=== PATIENT | female | born 1945 | race Two or more races ===

== ENCOUNTER 2019-06-09 10:00 | Outpatient (AMBR) | payer OTHER, MEDICAID, SELFPAY ==
--- NOTE | 2019-05-27 09:29 | PTNOTE_ITS ---
PT OP Initial Eval Patient Information Visit Reasons: hip post op Medical Diagnosis: Z47.1 Z96.64 Treatment Dx #1: post op R ABIGAIL Start of Care: 05/27/19 Date of Onset: 04/28/19 Initial Assessment Subjective Pt is 74 yr old female s/p R ABIGAIL about 4 weeks ago. She presents in a W/C and states she uses it for community mobility but at home she only uses the FWW to ambulate about 100'. She denies pain today in the R hip after taking a pain pill but usually the pain is about 3-4/10. My balance is pretty good. PMH: spinal sx 2018 with R drop foot, L ABIGAIL 01/21/20, R ABIGAIL 04/28/19 Imaging: in EMR Pt goal: I want to walk without a walker and use a cane Objective R hip AROM: Strength: Flexion: 80 deg 4-/5 Abduction: 30 deg 3+/5 SLR: 30 deg Gait: step to with FWW and step through with parallel bars Assessment Pt presentation consistent with referring Dx with decreased ROM, strength and function with gait. Pt requires skilled therapy to improve hip ROM, strength and function with gait. She has good rehab potential. Pt will be progressed from FWW to SPC as tolerated. Pt is aware of hip precautions. Eval followed by HEP with materials. Short Term and Penitentiary Goals 1. Ind with HEp 2. Improved flexion ROM to 90 deg and SLR to 45 deg 3. Improved hip strength to at least 4/5 flexion, abduction 4. Ambulate community distances with symmetrical gait pattern Treatment Plan 1. Manual therapy 2. Therex 3. Modalities as indicated, moist heat, ice, TENS Frequency and Duration 2x a week for 6 weeks Certification Dates: 05/27/19 to 08/26/19 Office Procedures PT Procedures PT Date of Service: 05/27/19 OP PT Eval Mod Complex 30 minutes: Yes
--- NOTE | 2019-05-29 11:56 | PT.ODAYNRPT ---
PT Outpatient Daily Note Date of Service: May 29, 2019 OP Daily Note Visit Reasons: hip post op Outpatient Physical Therapy Treatment Date: 05/29/19 Subjective: Same as time of eval Objective: See F/S for therex Assessment: Moderate tissue irritability and fatigue with therex today in supine and standing. She is globally deconditioned and uses W/C for community mobility. Should transition to FWW soon as she can ambulate with FWW. Plan: Continue per POC Length of Time (minutes) of Treatment: 30 Minutes Office Procedures PT Procedures PT Date of Service: 05/27/19 OP PT Eval Mod Complex 30 minutes: Yes PT Procedures PT Date of Service: 05/29/19 Therapeutic Exercise 30 minutes: Yes
--- NOTE | 2019-06-04 14:55 | PT.ODAYNRPT ---
PT Outpatient Daily Note Date of Service: June 04, 2019 OP Daily Note Visit Reasons: hip post op Outpatient Physical Therapy Treatment Date: 06/04/19 Subjective: Not too sore after last visit but feeling more tired today. Objective: See F/S for therex Assessment: Pt can weight shift onto the R LE but has poor standing balance and requires hand support to avoid LOB to the L. She hops off the R LE to avoid stance time, not due to pain but to balance. Moderate tissue irritability and fatigue with therex today in supine and standing. She is globally deconditioned and uses W/C for community mobility. Plan: Continue per POC Length of Time (minutes) of Treatment: 30 Minutes Office Procedures PT Procedures PT Date of Service: 05/27/19 OP PT Eval Mod Complex 30 minutes: Yes PT Procedures PT Date of Service: 05/29/19 Therapeutic Exercise 30 minutes: Yes PT Procedures PT Date of Service: 06/04/19 Therapeutic Exercise 30 minutes: Yes
--- NOTE | 2019-06-09 19:17 | PT.ODAYNRPT ---
PT Outpatient Daily Note Date of Service: June 09, 2019 OP Daily Note Visit Reasons: hip post op Outpatient Physical Therapy Treatment Date: 06/09/19 Subjective: Pt says she is walking more lately with FWW and her reminds her to. Objective: See F/S for therex Assessment: Pt can weight shift onto the R LE but has poor standing balance and requires hand support to avoid LOB to the L. She hops off the R LE to avoid stance time, not due to pain but to balance. Moderate tissue irritability and fatigue with therex today in supine and standing. She is globally deconditioned and uses W/C for community mobility. Plan: Continue per POC Length of Time (minutes) of Treatment: 30 Minutes Office Procedures PT Procedures PT Date of Service: 05/27/19 OP PT Eval Mod Complex 30 minutes: Yes PT Procedures PT Date of Service: 05/29/19 Therapeutic Exercise 30 minutes: Yes PT Procedures PT Date of Service: 06/04/19 Therapeutic Exercise 30 minutes: Yes PT Procedures PT Date of Service: 06/09/19 Therapeutic Exercise 30 minutes: Yes
== END 2019-06-12 23:59 | disposition home or self-care (01) ==
PROVIDERS: PCP Nurse Practitioner Family; Referring Provider Nurse Practitioner Family; Visit Provider Orthopaedic Surgery
DX: Z47.1 Aftercare following joint replacement surgery (principal); Z96.641 Presence of right artificial hip joint
CPT/HCPCS: 97110; 97162

== ENCOUNTER 2019-06-16 09:52 | Outpatient (AMBR) | payer OTHER, MEDICAID, SELFPAY ==
--- NOTE | 2019-06-16 20:07 | PT.ODAYNRPT ---
PT Outpatient Daily Note Date of Service: June 16, 2019 OP Daily Note Visit Reasons: R hip post op Outpatient Physical Therapy Treatment Date: 06/16/19 Subjective: Doing well, no complaints Objective: See F/S for therex Assessment: Pt challenged by bridging but was able to do about 20 fair quality about half height. Plan: Continue per POC Length of Time (minutes) of Treatment: 30 Minutes Office Procedures PT Procedures PT Date of Service: 06/16/19 Therapeutic Exercise 30 minutes: Yes
--- NOTE | 2019-06-24 13:44 | PT.ODAYNRPT ---
PT Outpatient Daily Note Date of Service: 06/24/19 OP Daily Note Visit Reasons: R hip post op Outpatient Physical Therapy Treatment Date: 06/24/19 Subjective: Pt presents in W/C today but says she is ambulating with FWW at home and she will come to therapy with it next time. Objective: See F/S for therex Assessment: Pt is deconditioned and fatigues easily with most therex. She was able to do partial body weight therex today and step ups on 4 step with fatigue but no hip pain. Plan: Continue per POC Length of Time (minutes) of Treatment: 30 Minutes Office Procedures PT Procedures PT Date of Service: 06/16/19 Therapeutic Exercise 30 minutes: Yes PT Procedures PT Date of Service: 06/24/19 Therapeutic Exercise 30 minutes: Yes
--- NOTE | 2019-06-30 10:31 | PT.ODAYNRPT ---
PT Outpatient Daily Note Date of Service: 06/30/19 OP Daily Note Visit Reasons: R hip post op Outpatient Physical Therapy Treatment Date: 06/30/19 Subjective: Pt presents to therapy ambulating with FWW Objective: See F/S for therex Assessment: Pt is deconditioned and fatigues easily with most therex. She is unable to SLR due to weakness/palsy of R hip flexors. Pt is unable to hold foot vertical in supine. Pt may benefit from nerve conduction study of R hip. Plan: Continue per POC Length of Time (minutes) of Treatment: 30 Minutes Office Procedures PT Procedures PT Date of Service: 06/16/19 Therapeutic Exercise 30 minutes: Yes PT Procedures PT Date of Service: 06/24/19 Therapeutic Exercise 30 minutes: Yes PT Procedures PT Date of Service: 06/30/19 Therapeutic Exercise 30 minutes: Yes
--- NOTE | 2019-07-03 13:26 | PT.ODAYNRPT ---
PT Outpatient Daily Note Date of Service: 07/03/19 OP Daily Note Visit Reasons: R hip post op Outpatient Physical Therapy Treatment Date: 07/03/19 Subjective: Pt presents to therapy ambulating with FWW with continued difficulty with hip flexion. Objective: See F/S for therex Assessment: Pt is deconditioned and fatigues easily with most therex. She is unable to SLR due to weakness/palsy of R hip flexors. Pt is unable to hold foot vertical in supine. Pt may benefit from nerve conduction study of R hip. Plan: Continue per POC Length of Time (minutes) of Treatment: 30 Minutes Office Procedures PT Procedures PT Date of Service: 06/16/19 Therapeutic Exercise 30 minutes: Yes PT Procedures PT Date of Service: 07/03/19 Therapeutic Exercise 30 minutes: Yes PT Procedures PT Date of Service: 06/24/19 Therapeutic Exercise 30 minutes: Yes PT Procedures PT Date of Service: 06/30/19 Therapeutic Exercise 30 minutes: Yes
--- NOTE | 2019-07-09 10:50 | PT.ODAYNRPT ---
PT Outpatient Daily Note Date of Service: 07/09/19 OP Daily Note Visit Reasons: R hip post op Outpatient Physical Therapy Treatment Date: 07/09/19 Office Procedures PT Procedures PT Date of Service: 06/16/19 Therapeutic Exercise 30 minutes: Yes PT Procedures PT Date of Service: 07/03/19 Therapeutic Exercise 30 minutes: Yes PT Procedures PT Date of Service: 06/24/19 Therapeutic Exercise 30 minutes: Yes PT Procedures PT Date of Service: 06/30/19 Therapeutic Exercise 30 minutes: Yes
--- NOTE | 2019-07-09 11:02 | PT.ODS1RPT ---
PT OP Progress/Discharge Note Date of Service: 07/09/19 Progress Note/DC Note Progress Note/Discharge Note: Progress Note Patient Information Visit Reasons: R hip post op Medical Diagnosis: Right total hip arthroplasty Service Continue Service or Discharge: Continue Service Status Subjective: Pt presents to therapy ambulating with FWW with continued difficulty with hip flexion. Objective: R hip AROM: Strength Flexion: 85 deg 3-/5 Abduction: 35 deg 3/5 SLR: 25 deg gait step to with FWW Assessment: Pt has attended 09/19 Rx visits and made slow progress with therapy goals due to possible hip flexor palsy. She is unable to SLR due to weakness/palsy of R hip flexors. Pt is unable to hold foot vertical in supine and it falls into hip retroversion. Pt may benefit from nerve conduction study of R hip and continued physical therapy to strengthen. Plan: Request additional visits to continue to strengthen hip x8 Office Procedures PT Procedures PT Date of Service: 06/16/19 Therapeutic Exercise 30 minutes: Yes PT Procedures PT Date of Service: 07/03/19 Therapeutic Exercise 30 minutes: Yes PT Procedures PT Date of Service: 06/24/19 Therapeutic Exercise 30 minutes: Yes PT Procedures PT Date of Service: 06/30/19 Therapeutic Exercise 30 minutes: Yes PT Procedures PT Date of Service: 07/09/19 Therapeutic Exercise 30 minutes: Yes
== END 2019-07-13 23:59 | disposition home or self-care (01) ==
PROVIDERS: PCP Nurse Practitioner Family; Referring Provider Nurse Practitioner Family; Visit Provider Orthopaedic Surgery
DX: Z47.1 Aftercare following joint replacement surgery (principal); Z96.641 Presence of right artificial hip joint
CPT/HCPCS: 97110

== ENCOUNTER 2019-07-18 11:20 | Outpatient (AMBR) | payer OTHER, MEDICAID, SELFPAY ==
--- NOTE | 2019-07-18 11:03 | PT.ODAYNRPT ---
PT Outpatient Daily Note Date of Service: 07/18/2019 OP Daily Note Visit Reasons: hip post op Outpatient Physical Therapy Treatment Date: 07/18/19 Subjective: pt states she uses FWW due to her foot drop on the RLE. Objective: see flow sheet. Assessment: pt was able to tolerate increase in time on the scifit. she was fatigued but after a few mins of rest she continued with ther ex. added monster walks inside the PB in which she did fine. she does sit and rest in between ther ex due to SOB. pt tends to hold her breath in during ther ex which then causes more fatigue. she is not able to flex her knee straight so she compensate into hip ER, abd and flexion. Plan: continue POC per PT. Length of Time (minutes) of Treatment: 30 Minutes
--- NOTE | 2019-07-22 13:45 | PT.ODAYNRPT ---
PT Outpatient Daily Note Date of Service: 07/22/19 OP Daily Note Visit Reasons: hip post op Outpatient Physical Therapy Treatment Date: 07/22/19 Subjective: She is walking with FWW and is wondering if she should switch to 4WW and doesn't feel safe to do so yet. She is wearing R AFO. Objective: See F/S for therex Assessment: Pt fatigues easily with therex without resistance and has continued difficulty with R SLR/hip flexion. Plan: Continue per POC Length of Time (minutes) of Treatment: 30 Minutes
--- NOTE | 2019-07-25 14:05 | PT.ODAYNRPT ---
PT Outpatient Daily Note Date of Service: 07/25/2019 OP Daily Note Visit Reasons: hip post op Outpatient Physical Therapy Treatment Date: 07/25/19 Subjective: pt states she feels pain in her R groin area. she will have exams to determine the reason of the pain per . Objective: see flow sheet. Assessment: pt added new exercises in which she did well but fatigues. pt gets SOB quickly and needs breaks in between exercises. she was wearing her AFO on the RLE. although she was wearing her AFO she was still ambulating with antalgic gait pattern due to the hip. she is able to flex the hips during her walking marches but not too much just high enough to lift the feet off the floor. Plan: continue POC per PT. Length of Time (minutes) of Treatment: 30 Minutes Office Procedures PT Procedures PT Date of Service: 07/22/19 Therapeutic Exercise 30 minutes: Yes PT Procedures PT Date of Service: 07/25/19 Therapeutic Exercise 30 minutes: Yes
--- NOTE | 2019-07-28 19:25 | PT.ODAYNRPT ---
PT Outpatient Daily Note Date of Service: 07/28/19 OP Daily Note Visit Reasons: hip post op Outpatient Physical Therapy Treatment Date: 07/28/19 Subjective: Not much change in the hip since starting therapy. She c/o LBP and R hip pain and has imaging of R hip upcoming. Objective: See F/S for therex Assessment: Pt fatigues easily with therex without resistance and has continued difficulty with R SLR/hip flexion consistent with lumbar radiculopathy/femoral nerve palsy. Plan: Continue per POC Length of Time (minutes) of Treatment: 30 Minutes Office Procedures PT Procedures PT Date of Service: 07/22/19 Therapeutic Exercise 30 minutes: Yes PT Procedures PT Date of Service: 07/25/19 Therapeutic Exercise 30 minutes: Yes PT Procedures PT Date of Service: 07/28/19 Therapeutic Exercise 30 minutes: Yes
--- NOTE | 2019-07-30 18:18 | PT.ODAYNRPT ---
PT Outpatient Daily Note Date of Service: 07/30/19 OP Daily Note Visit Reasons: hip post op Outpatient Physical Therapy Treatment Date: 07/30/19 Subjective: Not much change in the hip since starting therapy. She c/o LBP and R hip pain and has imaging of R hip upcoming. Objective: See F/S for therex Assessment: Pt fatigues easily with therex without resistance and has continued difficulty with R SLR/hip flexion consistent with lumbar radiculopathy/femoral nerve palsy. Plan: Continue per POC Length of Time (minutes) of Treatment: 30 Minutes Office Procedures PT Procedures PT Date of Service: 07/22/19 Therapeutic Exercise 30 minutes: Yes PT Procedures PT Date of Service: 07/25/19 Therapeutic Exercise 30 minutes: Yes PT Procedures PT Date of Service: 07/28/19 Therapeutic Exercise 30 minutes: Yes PT Procedures PT Date of Service: 07/30/19 Therapeutic Exercise 30 minutes: Yes
--- NOTE | 2019-08-06 18:25 | PT.ODAYNRPT ---
PT Outpatient Daily Note Date of Service: 08/06/19 OP Daily Note Visit Reasons: hip post op Outpatient Physical Therapy Treatment Date: 08/06/19 Subjective: Not much change in the hip since starting therapy. Objective: See F/S for therex Assessment: Pt fatigues easily with therex without resistance and has continued difficulty with R SLR/hip flexion and hip IR consistent with lumbar radiculopathy/femoral nerve palsy. She does have improved endurance on the recumbent bike to about 9 minutes. Plan: Continue per POC Length of Time (minutes) of Treatment: 30 Minutes Office Procedures PT Procedures PT Date of Service: 07/22/19 Therapeutic Exercise 30 minutes: Yes PT Procedures PT Date of Service: 07/25/19 Therapeutic Exercise 30 minutes: Yes PT Procedures PT Date of Service: 07/28/19 Therapeutic Exercise 30 minutes: Yes PT Procedures PT Date of Service: 07/30/19 Therapeutic Exercise 30 minutes: Yes PT Procedures PT Date of Service: 08/06/19 Therapeutic Exercise 30 minutes: Yes
--- NOTE | 2019-08-11 11:26 | PT.ODAYNRPT ---
PT Outpatient Daily Note Date of Service: 08/11/2019 OP Daily Note Visit Reasons: hip post op Outpatient Physical Therapy Treatment Date: 08/11/19 Subjective: pt states she is compliant with HEP. she feels a bit stronger since continuing PT. Objective: see flow sheet. Assessment: pt is able to lift her RLE higher still using the strap. her knee flexion is also combined motion with ER of the hip. pt needed cuing to correct her walking exercises in the PB. after demonstration of correct form she understood and was able to fix her steps. she was not wearing her AFO but still managed to have good balance using her FWW. Plan: continue POC per PT. Length of Time (minutes) of Treatment: 30 Minutes Office Procedures PT Procedures PT Date of Service: 07/22/19 Therapeutic Exercise 30 minutes: Yes PT Procedures PT Date of Service: 07/25/19 Therapeutic Exercise 30 minutes: Yes PT Procedures PT Date of Service: 07/28/19 Therapeutic Exercise 30 minutes: Yes PT Procedures PT Date of Service: 07/30/19 Therapeutic Exercise 30 minutes: Yes PT Procedures PT Date of Service: 08/06/19 Therapeutic Exercise 30 minutes: Yes PT Procedures PT Date of Service: 08/11/19 Therapeutic Exercise 30 minutes: Yes
== END 2019-08-12 23:59 | disposition home or self-care (01) ==
PROVIDERS: PCP Registered Nurse; Referring Provider Registered Nurse; Visit Provider Orthopaedic Surgery
DX: Z47.1 Aftercare following joint replacement surgery (principal); Z96.641 Presence of right artificial hip joint
CPT/HCPCS: 97110

== ENCOUNTER 2019-08-13 09:45 | Outpatient (AMBR) | payer OTHER, MEDICAID, SELFPAY ==
--- NOTE | 2019-08-13 18:27 | PT.ODAYNRPT ---
PT Outpatient Daily Note Date of Service: 08/13/19 OP Daily Note Visit Reasons: hip post op Outpatient Physical Therapy Treatment Date: 08/13/19 Subjective: Pt can lift the R LE better with more strength Objective: See f/S for therex Assessment: Improved SLR strength today in supine Plan: Continue per POC Length of Time (minutes) of Treatment: 30 Minutes Office Procedures PT Procedures PT Date of Service: 08/13/19 Therapeutic Exercise 30 minutes: Yes
--- NOTE | 2019-08-18 18:46 | PT.ODAYNRPT ---
PT Outpatient Daily Note Date of Service: 08/18/19 OP Daily Note Visit Reasons: hip post op Outpatient Physical Therapy Treatment Date: 08/18/19 Subjective: Pt can lift the R LE better with more strength Objective: See f/S for therex Assessment: Improved SLR strength today in supine Plan: Continue per POC Length of Time (minutes) of Treatment: 30 Minutes Office Procedures PT Procedures PT Date of Service: 08/13/19 Therapeutic Exercise 30 minutes: Yes PT Procedures PT Date of Service: 08/18/19 Therapeutic Exercise 30 minutes: Yes
--- NOTE | 2019-08-20 14:35 | PT.ODAYNRPT ---
PT Outpatient Daily Note Date of Service: 08/20/19 OP Daily Note Visit Reasons: hip post op Outpatient Physical Therapy Treatment Date: 08/20/19 Subjective: Pt can lift the R LE better with more strength and wants to do the bike for more time today since she is feeling better today. Objective: See f/S for therex Assessment: Improved therex and rep tolerance today. Plan: Continue per POC Length of Time (minutes) of Treatment: 30 Minutes Office Procedures PT Procedures PT Date of Service: 08/13/19 Therapeutic Exercise 30 minutes: Yes PT Procedures PT Date of Service: 08/18/19 Therapeutic Exercise 30 minutes: Yes PT Procedures PT Date of Service: 08/20/19 Therapeutic Exercise 30 minutes: Yes
--- NOTE | 2019-08-25 09:15 | PT.ODAYNRPT ---
PT Outpatient Daily Note Date of Service: 08/25/2019 OP Daily Note Visit Reasons: hip post op Outpatient Physical Therapy Treatment Date: 08/25/19 Subjective: pt states her hip is feeling better with time. Objective: see flow sheet. Assessment: pt fatigues and SOB could be due to wearing a mask but needs seated rest breaks with water. she has the most difficulty with SLR as it still causes pain. what does help her is the strap to be able to lift the leg. she does have good mobility with the assistance of the strap. pt came in with FWW but no AFO due to c/o discomfort. Plan: continue POC per PT. Length of Time (minutes) of Treatment: 30 Minutes Office Procedures PT Procedures PT Date of Service: 08/13/19 Therapeutic Exercise 30 minutes: Yes PT Procedures PT Date of Service: 08/18/19 Therapeutic Exercise 30 minutes: Yes PT Procedures PT Date of Service: 08/20/19 Therapeutic Exercise 30 minutes: Yes PT Procedures PT Date of Service: 08/25/19 Therapeutic Exercise 30 minutes: Yes
--- NOTE | 2019-08-27 17:01 | PT.ODS1RPT ---
PT OP Progress/Discharge Note Date of Service: 08/27/19 Progress Note/DC Note Progress Note/Discharge Note: DC Note Patient Information Visit Reasons: hip post op Service Continue Service or Discharge: Discharge Discharge Date: 08/27/19 Status Subjective: Pt can lift the R LE better with more strength and wants to do the bike for more time today since she is feeling better today. Objective: R hip AROM: Strength: Flexion: 90 deg 4-/5 Abduction: 40 deg 4-/5 SLR: 45 deg Assessment: Pt has attended a total of 20 Rx visits with good progress to meet therapy goals. She has improved hip flexion ROM to 90 deg and SLR to 45 deg. In order to SLR, she has to first lift the LE with flexed knee and then she can extend it. Hip strength hasn't quite met the goal of 4/5 into flexion and abduction but it's better and should improve with time with lumbar radiculopathy likely affecting this. She can ambulate further with symmetrical pattern with FWW when she wants to and has the energy to. Jose followed by HEP materials. Plan: D/C with HEP. Office Procedures PT Procedures PT Date of Service: 08/13/19 Therapeutic Exercise 30 minutes: Yes PT Procedures PT Date of Service: 08/18/19 Therapeutic Exercise 30 minutes: Yes PT Procedures PT Date of Service: 08/20/19 Therapeutic Exercise 30 minutes: Yes PT Procedures PT Date of Service: 08/25/19 Therapeutic Exercise 30 minutes: Yes PT Procedures PT Date of Service: 08/27/19 Therapeutic Exercise 30 minutes: Yes
== END 2019-09-12 23:59 | disposition home or self-care (01) ==
PROVIDERS: PCP Nurse Practitioner Family; Referring Provider Nurse Practitioner Family; Visit Provider Orthopaedic Surgery
DX: M25.551 Pain in right hip (principal); R26.89 Other abnormalities of gait and mobility
CPT/HCPCS: 97110

== ENCOUNTER → 2024-10-28 | Outpatient (CLI) | payer OTHER, SELFPAY ==
--- NOTE | 2024-10-28 10:27 | XR_ITS ---
Examination: Lumbar spine 3 views Technique one AP lateral coned lateral lower lumbar spine 3 views Date and time: October 28, 2024 1042 hours, comparison August 16, 2023 INDICATIONS: Chronic low back pain more severe the last month. FINDINGS: Cholelithiasis. Lumbar levoscoliosis 15 degrees Severe osteopenia Bilateral total hip arthroplasties with satisfactory alignment. Advanced degenerative disc disease T12-L1, L1-L2, L2-L3 Stable anterolisthesis, grade 1, L3 on L2 Mild to moderate disc narrowing L5-S1 No lumbar fracture Moderate lumbar spondylosis Stable chronic wedging, mild, L2 IMPRESSION: Again noted advanced degenerative disc disease T12-L1, L1-L2, L2-L3
== END | disposition home or self-care (01) ==
PROVIDERS: PCP Nurse Practitioner Family; Referring Provider Nurse Practitioner Family; Visit Provider Nurse Practitioner Family
DX: M51.360 Other intervertebral disc degeneration, lumbar region with discogenic back pain only (principal); M51.35 Other intervertebral disc degeneration, thoracolumbar region
CPT/HCPCS: 72100

== ENCOUNTER → 2025-02-09 | Outpatient (CLI) | payer OTHER, SELFPAY ==
--- NOTE | 2025-02-09 08:00 | XR_ITS ---
Examination: MRI lumbar spine without contrast Date and time of exam: February 09, 2025, 0822 hours INDICATIONS: Low back pain for months radiating to the right hip Technique: Multiple MRI axial and sagittal sections lumbar spine. Sagittal T2-weighted images, TR 3500, TE 118 T1 weighted transverse sections, TR 688 T8.5, T2-weighted sagittal sections T1 weighted sagittal sections TR 621, TE 30 T2 axial sections, TR 4, 190, TE 84. Findings: Satisfactory alignment lumbar vertebral bodies Advanced disc narrowing L2-L3 Diffuse lumbar disc desiccation No lumbar fracture No spondylolisthesis Moderate lumbar spondylosis L5-S1 4 mm lumbar disc bulge, central L4-L5 3 mm central lumbar disc bulge L3-L4 small foraminal disc bulges no ganglionic compression L2-L3 no disc protrusion L1-L2 severe spinal stenosis, axial image 14, circumferential narrowing of the thecal sac with pronounced facet arthropathy, thickening of ligamentum flavum and moderate bilateral L1 ganglionic compression IMPRESSION: L5-S1 4 mm central lumbar disc bulge L4-L5 3 mm central lumbar disc bulge L1-L2 severe overall acquired spinal stenosis
== END | disposition home or self-care (01) ==
LOC: SMRI 07:22
PROVIDERS: PCP Nurse Practitioner Family; Referring Provider Nurse Practitioner Family; Visit Provider Nurse Practitioner Family
DX: M51.370 Other intervertebral disc degeneration, lumbosacral region with discogenic back pain only (principal); M51.360 Other intervertebral disc degeneration, lumbar region with discogenic back pain only; M48.061 Spinal stenosis, lumbar region without neurogenic claudication
CPT/HCPCS: 72148